=== PATIENT | male | born 1960 | race Caucasian/White ===

== ENCOUNTER 2020-03-20 09:34 | Inpatient (IN) | payer OTHER ==
[2020-03-20] MEDS ORDERED: ACETAMINOPHEN 1000 MG/100 ML VIAL (NON FORMULARY) IVPB ONE (10:10)
[2020-03-20] MEDS ORDERED: SODIUM CHLORIDE 1,000 ML IV SCH ×2 (10:15→13:40)
[2020-03-20] MEDS ORDERED: methylPREDNISolone NA SUCC 125 MG/2 ML VIAL IVPUSH ONE (10:45)
[2020-03-20 11:17] LABS: VENOUS BASE EXCESS -0.9 mmol/L (-2-2); VENOUS O2 SATURATION 97.2 % (70-80); VENOUS PH 7.463 (7.310-7.410)
[2020-03-20 11:22] LABS: BASO % 0.1 % (0-2.0); LYMPH % 16.1 % (8-40); MCH 29.2 pg (25.7-33.7); MEAN CELL VOLUME 85.7 fl (80-96); MEAN PLT VOLUME 9.7 fl (7.5-11.1); MONO % 8.2 % (3.8-10.2); NEUT % 75.6 % (42.8-82.8); PLATELET COUNT 133 K/MM3 (134-434); RBC 5.13 M/mm3 (4.00-5.60); RDW 13.3 % (11.9-15.9)
[2020-03-20] MEDS ORDERED: methylPREDNISolone NA SUCC 125 MG/2 ML VIAL ONE (11:27)
[2020-03-20 11:34] LABS: INR 1.26 (0.83-1.09); PROTHROMBIN TIME (PATIENT) 15.4 SEC (9.7-13.0)
[2020-03-20 11:37] LABS: ACTIVATED PTT 34.2 SECONDS (25.2-36.5)
[2020-03-20 11:46] LABS: POTASSIUM 3.5 mmol/L (3.5-5.1)
[2020-03-20 11:47] LABS: CALCIUM 8.6 mg/dL (8.5-10.1)
[2020-03-20 11:48] LABS: ALBUMIN 3.4 g/dl (3.4-5.0); MAGNESIUM 2.4 mg/dL (1.8-2.4)
[2020-03-20 11:51] LABS: CREATININE 0.9 mg/dL (0.55-1.3)
[2020-03-20 11:53] LABS: BILIRUBIN,TOTAL 0.4 mg/dL (0.2-1); TOT PROT 7.1 g/dl (6.4-8.2)
[2020-03-20 11:57] LABS: N-TERMINAL BNP 63.4 pg/ml (5-125)
[2020-03-20] MEDS ORDERED: ALBUTEROL SO4 2.5/IPRATROPIUM 0.5 INH SOL 3 ML VIAL.NEB. NEB PRN ×2 (14:26→14:29)
[2020-03-20] MEDS ORDERED: ALBUTEROL SO4 HFA INHALER IH PRN (14:30)
[2020-03-20] MEDS ORDERED: DEXTROSE 5%-WATER - 50 ML IVPB ONE (15:16)
[2020-03-20] MEDS ORDERED: cefTRIAXone SODIUM 1 GM VIAL ONE (15:16)
[2020-03-20] MEDS: ZINC SULFATE 220 MG CAPSULE (FP) PO SCH (15:46)
[2020-03-20] MEDS: ASCORBIC ACID 500 MG TABLET (FP) PO SCH (15:46)
[2020-03-20] MEDS: CEFTRIAXONE 1 GM in DEXTROSE 5%-WATER - 50 ML IVPB SCH (15:46)
[2020-03-20] MEDS: AZITHROMYCIN IVPB 500 MG/250 ML BAG IVPB SCH (17:22)
[2020-03-20 18:50] VITALS: BMI 30.4
[2020-03-20 18:59] LABS: PH,URINE 5.5 (5.0-8.0); URINE APPEARANCE CLEAR; URINE BILIRUBIN NEGATIVE (NEGATIVE); URINE COLOR YELLOW; URINE GLUCOSE (UA) 2+ (NEGATIVE); URINE KETONE NEGATIVE (NEGATIVE); URINE LEUK ESTERASE NEGATIVE (NEGATIVE); URINE NITRITE NEGATIVE (NEGATIVE); URINE PROTEIN NEGATIVE (NEGATIVE); URINE UROBILINOGEN 0.2 mg/dL (0.2-1.0)
[2020-03-20] MEDS: ATORVASTATIN CA 20 MG TABLET (FP) PO SCH (21:13)
[2020-03-20] MEDS: DOCUSATE SODIUM 100 MG CAPSULE (FP) PO SCH ×2 (21:13→21:29)
[2020-03-20] MEDS ORDERED: ENOXAPARIN NA (PORCINE) 100 MG/1 ML DISP.SYRIN SQ SCH (22:00)
[2020-03-20] MEDS ORDERED: guaiFENesin 200 MG/10 ML 10 ML UNIT-DOSE CUPS PO ONE (22:23)
[2020-03-21 08:43] LABS: BASO % 0.2 % (0-2.0); HEMATOCRIT 40.2 % (35.4-49); HEMOGLOBIN 14.1 GM/dL (11.7-16.9); LYMPH % 8.8 % (8-40); MCH 30.5 pg (25.7-33.7); MEAN CELL VOLUME 87.1 fl (80-96); MEAN PLT VOLUME 9.7 fl (7.5-11.1); PLATELET COUNT 148 K/MM3 (134-434); RBC 4.61 M/mm3 (4.00-5.60); RDW 13.1 % (11.9-15.9); WHITE BLOOD COUNT 9.4 K/mm3 (4.0-10.0)
[2020-03-21 08:54] LABS: POTASSIUM 3.8 mmol/L (3.5-5.1)
[2020-03-21 08:56] LABS: CALCIUM 7.9 mg/dL (8.5-10.1)
[2020-03-21 08:57] LABS: ALBUMIN 2.8 g/dl (3.4-5.0); BLOOD UREA NITROGEN 15.9 mg/dL (7-18); MAGNESIUM 2.2 mg/dL (1.8-2.4)
[2020-03-21 08:59] LABS: CREATININE 0.8 mg/dL (0.55-1.3)
[2020-03-21 09:00] LABS: PHOSPHOROUS 3.5 mg/dL (2.5-4.9)
[2020-03-21 09:01] LABS: BILIRUBIN,TOTAL 0.4 mg/dL (0.2-1); TOT PROT 6.3 g/dl (6.4-8.2)
[2020-03-21] MEDS ORDERED: FLU VACCINE (FLULAVAL) PF 60 MCG/0.5 ML SYRINGE 2020-2021 IM ONE (10:00)
[2020-03-21] MEDS ORDERED: DEXAMETHASONE SOD PHOSPHATE 4 MG/1 ML VIAL IVPUSH SCH (10:00)
[2020-03-21] MEDS ORDERED: DEXTROSE 5%-WATER - 50 ML IVPB ONE (10:08)
[2020-03-21] MEDS ORDERED: cefTRIAXone SODIUM 1 GM VIAL ONE (10:08)
[2020-03-21] MEDS: ASCORBIC ACID 500 MG TABLET (FP) PO SCH (10:46)
[2020-03-21] MEDS: CEFTRIAXONE 1 GM in DEXTROSE 5%-WATER - 50 ML IVPB SCH (10:46)
[2020-03-21] MEDS: ZINC SULFATE 220 MG CAPSULE (FP) PO SCH (10:46)
[2020-03-21] MEDS: DOCUSATE SODIUM 100 MG CAPSULE (FP) PO SCH ×2 (10:46→21:54)
[2020-03-21] MEDS: ENOXAPARIN NA (PORCINE) 40 MG/0.4 ML DISP.SYRIN SQ SCH (10:47)
[2020-03-21] MEDS: DEXAMETHASONE 4 MG TABLET (FP) PO SCH (10:47)
[2020-03-21] MEDS: AZITHROMYCIN IVPB 500 MG/250 ML BAG IVPB SCH (11:45)
[2020-03-21] MEDS: ACETAMINOPHEN 325 MG TABLET (FP) PO PRN (11:46)
[2020-03-21] MEDS ORDERED: REMDESIVIR 200 MG in SODIUM CHLORIDE 210 ML IVPB ONE (15:00)
[2020-03-21] MEDS ORDERED: PT OWN MED DRAWER 7, Y5N ONE (15:49)
[2020-03-21] MEDS: ATORVASTATIN CA 20 MG TABLET (FP) PO SCH (21:54)
[2020-03-22] MEDS ORDERED: guaiFENesin/D-METHORPHAN HB 10 ML UNIT-DOSE CUPS PO ONE (03:12)
[2020-03-22 08:25] LABS: HEMATOCRIT 38.4 % (35.4-49); HEMOGLOBIN 13.1 GM/dL (11.7-16.9); MCH 29.1 pg (25.7-33.7); MEAN CELL VOLUME 85.6 fl (80-96); MEAN PLT VOLUME 8.7 fl (7.5-11.1); PLATELET COUNT 179 K/MM3 (134-434); RBC 4.49 M/mm3 (4.00-5.60); RDW 13.2 % (11.9-15.9)
[2020-03-22 08:40] LABS: POTASSIUM 3.9 mmol/L (3.5-5.1)
[2020-03-22 08:45] LABS: BLOOD UREA NITROGEN 19.7 mg/dL (7-18); CALCIUM 8.2 mg/dL (8.5-10.1)
[2020-03-22 08:48] LABS: CREATININE 0.8 mg/dL (0.55-1.3)
[2020-03-22] MEDS ORDERED: cefTRIAXone SODIUM 1 GM VIAL ONE (10:36)
[2020-03-22] MEDS ORDERED: DEXTROSE 5%-WATER - 50 ML IVPB ONE (10:37)
[2020-03-22] MEDS: ENOXAPARIN NA (PORCINE) 40 MG/0.4 ML DISP.SYRIN SQ SCH (10:42)
[2020-03-22] MEDS: DEXAMETHASONE 4 MG TABLET (FP) PO SCH (10:42)
[2020-03-22] MEDS: DOCUSATE SODIUM 100 MG CAPSULE (FP) PO SCH ×2 (10:42→21:07)
[2020-03-22] MEDS: ZINC SULFATE 220 MG CAPSULE (FP) PO SCH (10:42)
[2020-03-22] MEDS: ASCORBIC ACID 500 MG TABLET (FP) PO SCH (10:42)
[2020-03-22] MEDS: CEFTRIAXONE 1 GM in DEXTROSE 5%-WATER - 50 ML IVPB SCH (10:43)
[2020-03-22] MEDS: AZITHROMYCIN IVPB 500 MG/250 ML BAG IVPB SCH (10:43)
[2020-03-22] MEDS: REMDESIVIR 100 MG in SODIUM CHLORIDE 230 ML IVPB SCH (15:00)
[2020-03-22] MEDS: ALBUTEROL SO4 HFA INHALER IH SCH ×2 (15:02→21:07)
[2020-03-22] MEDS: ATORVASTATIN CA 20 MG TABLET (FP) PO SCH (21:06)
[2020-03-23] MEDS: ALBUTEROL SO4 HFA INHALER IH SCH ×3 (05:28→21:07)
[2020-03-23] MEDS ORDERED: PT OWN MED DRAWER 7, Y5N ONE ×2 (06:34→11:20)
[2020-03-23 08:02] LABS: HEMATOCRIT 41.1 % (35.4-49); HEMOGLOBIN 13.9 GM/dL (11.7-16.9); MCH 29.6 pg (25.7-33.7); MCHC 33.9 g/dl (32.0-35.9); MEAN CELL VOLUME 87.5 fl (80-96); MEAN PLT VOLUME 9.3 fl (7.5-11.1); PLATELET COUNT 206 K/MM3 (134-434); RDW 13.2 % (11.9-15.9); WHITE BLOOD COUNT 9.7 K/mm3 (4.0-10.0)
[2020-03-23 08:10] LABS: POTASSIUM 3.9 mmol/L (3.5-5.1)
[2020-03-23 08:24] LABS: ALBUMIN 2.8 g/dl (3.4-5.0); CALCIUM 8.5 mg/dL (8.5-10.1)
[2020-03-23 08:25] LABS: BLOOD UREA NITROGEN 22.4 mg/dL (7-18); MAGNESIUM 2.5 mg/dL (1.8-2.4)
[2020-03-23 08:27] LABS: CREATININE 0.6 mg/dL (0.55-1.3)
[2020-03-23 08:28] LABS: BILIRUBIN,TOTAL 0.5 mg/dL (0.2-1); PHOSPHOROUS 3.4 mg/dL (2.5-4.9); TOT PROT 6.3 g/dl (6.4-8.2)
[2020-03-23] MEDS ORDERED: DEXTROSE 5%-WATER - 50 ML IVPB ONE (11:21)
[2020-03-23] MEDS ORDERED: cefTRIAXone SODIUM 1 GM VIAL ONE (11:21)
[2020-03-23] MEDS: ZINC SULFATE 220 MG CAPSULE (FP) PO SCH (11:25)
[2020-03-23] MEDS: DOCUSATE SODIUM 100 MG CAPSULE (FP) PO SCH ×2 (11:25→21:07)
[2020-03-23] MEDS: ASCORBIC ACID 500 MG TABLET (FP) PO SCH (11:25)
[2020-03-23] MEDS: DEXAMETHASONE 4 MG TABLET (FP) PO SCH (11:25)
[2020-03-23] MEDS: ENOXAPARIN NA (PORCINE) 40 MG/0.4 ML DISP.SYRIN SQ SCH (11:26)
[2020-03-23] MEDS: CEFTRIAXONE 1 GM in DEXTROSE 5%-WATER - 50 ML IVPB SCH (11:26)
[2020-03-23] MEDS: REMDESIVIR 100 MG in SODIUM CHLORIDE 230 ML IVPB SCH (16:10)
[2020-03-23] MEDS: ACETAMINOPHEN 325 MG TABLET (FP) PO PRN (18:43)
[2020-03-23] MEDS: ATORVASTATIN CA 20 MG TABLET (FP) PO SCH (21:07)
[2020-03-24] MEDS: ALBUTEROL SO4 HFA INHALER IH SCH ×3 (05:52→21:54)
[2020-03-24 09:37] LABS: POTASSIUM 3.9 mmol/L (3.5-5.1)
[2020-03-24 09:49] LABS: BLOOD UREA NITROGEN 24.1 mg/dL (7-18); CALCIUM 8.3 mg/dL (8.5-10.1)
[2020-03-24 09:52] LABS: CREATININE 0.6 mg/dL (0.55-1.3)
[2020-03-24] MEDS ORDERED: cefTRIAXone SODIUM 1 GM VIAL ONE (10:44)
[2020-03-24] MEDS ORDERED: DEXTROSE 5%-WATER - 50 ML IVPB ONE (10:45)
[2020-03-24] MEDS: CEFTRIAXONE 1 GM in DEXTROSE 5%-WATER - 50 ML IVPB SCH (10:53)
[2020-03-24] MEDS: DOCUSATE SODIUM 100 MG CAPSULE (FP) PO SCH ×2 (10:54→21:54)
[2020-03-24] MEDS: ENOXAPARIN NA (PORCINE) 40 MG/0.4 ML DISP.SYRIN SQ SCH (10:54)
[2020-03-24] MEDS: DEXAMETHASONE 4 MG TABLET (FP) PO SCH (10:54)
[2020-03-24] MEDS: ASCORBIC ACID 500 MG TABLET (FP) PO SCH (10:54)
[2020-03-24] MEDS: ZINC SULFATE 220 MG CAPSULE (FP) PO SCH (10:54)
[2020-03-24] MEDS: REMDESIVIR 100 MG in SODIUM CHLORIDE 230 ML IVPB SCH (15:37)
[2020-03-24] MEDS: ATORVASTATIN CA 20 MG TABLET (FP) PO SCH (21:54)
[2020-03-24] MEDS: MELATONIN 5 MG TABLETS PO PRN (23:22)
[2020-03-25] MEDS: ALBUTEROL SO4 HFA INHALER IH SCH ×3 (06:14→22:10)
[2020-03-25 09:32] LABS: BASO % 0.1 % (0-2.0); EOS % 0.1 % (0-4.5); HEMATOCRIT 44.9 % (35.4-49); LYMPH % 11.7 % (8-40); MCH 29.1 pg (25.7-33.7); MCHC 33.5 g/dl (32.0-35.9); MEAN CELL VOLUME 86.9 fl (80-96); MEAN PLT VOLUME 8.7 fl (7.5-11.1); MONO % 6.2 % (3.8-10.2); NEUT % 81.9 % (42.8-82.8); PLATELET COUNT 295 K/MM3 (134-434); RBC 5.16 M/mm3 (4.00-5.60); RDW 12.8 % (11.9-15.9); WHITE BLOOD COUNT 13.1 K/mm3 (4.0-10.0)
[2020-03-25 09:46] LABS: POTASSIUM 3.8 mmol/L (3.5-5.1)
[2020-03-25] MEDS: DEXAMETHASONE 4 MG TABLET (FP) PO SCH (09:53)
[2020-03-25] MEDS: ASCORBIC ACID 500 MG TABLET (FP) PO SCH (09:53)
[2020-03-25] MEDS: DOCUSATE SODIUM 100 MG CAPSULE (FP) PO SCH ×2 (09:53→22:10)
[2020-03-25] MEDS: ENOXAPARIN NA (PORCINE) 40 MG/0.4 ML DISP.SYRIN SQ SCH (09:53)
[2020-03-25] MEDS: ZINC SULFATE 220 MG CAPSULE (FP) PO SCH (09:53)
[2020-03-25 09:59] LABS: CALCIUM 8.3 mg/dL (8.5-10.1)
[2020-03-25 10:00] LABS: ALBUMIN 2.8 g/dl (3.4-5.0); BLOOD UREA NITROGEN 21.7 mg/dL (7-18)
[2020-03-25 10:03] LABS: CREATININE 0.7 mg/dL (0.55-1.3)
[2020-03-25 10:04] LABS: BILIRUBIN,TOTAL 0.7 mg/dL (0.2-1); TOT PROT 6.6 g/dl (6.4-8.2)
[2020-03-25 10:32] LABS: ERYTHROCYTE SEDIMENTATION RATE 81 mm/hr (0-20)
[2020-03-25 11:22] LABS: ANISOCYTOSIS 1+; MACROCYTOSIS 0; PLATELET ESTIMATE NORMAL
[2020-03-25] MEDS: REMDESIVIR 100 MG in SODIUM CHLORIDE 230 ML IVPB SCH (15:43)
[2020-03-25] MEDS: ATORVASTATIN CA 20 MG TABLET (FP) PO SCH (22:10)
[2020-03-26] MEDS: MELATONIN 5 MG TABLETS PO PRN (00:35)
[2020-03-26] MEDS ORDERED: SODIUM CHLORIDE 0.9% 500 ML INFUS.BAG IV ONE (06:34)
[2020-03-26] MEDS: ALBUTEROL SO4 HFA INHALER IH SCH ×3 (06:45→22:57)
[2020-03-26 08:55] LABS: BASO % 0.2 % (0-2.0); EOS % 0.6 % (0-4.5); HEMOGLOBIN 14.3 GM/dL (11.7-16.9); LYMPH % 9.2 % (8-40); MCH 29.3 pg (25.7-33.7); MCHC 34.1 g/dl (32.0-35.9); MEAN CELL VOLUME 85.9 fl (80-96); MEAN PLT VOLUME 8.5 fl (7.5-11.1); MONO % 6.5 % (3.8-10.2); NEUT % 83.5 % (42.8-82.8); PLATELET COUNT 304 K/MM3 (134-434); RBC 4.88 M/mm3 (4.00-5.60); RDW 12.6 % (11.9-15.9); WHITE BLOOD COUNT 14.5 K/mm3 (4.0-10.0)
[2020-03-26 09:09] LABS: POTASSIUM 3.9 mmol/L (3.5-5.1)
[2020-03-26 09:11] LABS: CALCIUM 8.3 mg/dL (8.5-10.1)
[2020-03-26 09:12] LABS: ALBUMIN 2.6 g/dl (3.4-5.0); BLOOD UREA NITROGEN 21.7 mg/dL (7-18)
[2020-03-26 09:15] LABS: CREATININE 0.6 mg/dL (0.55-1.3)
[2020-03-26 09:16] LABS: BILIRUBIN,TOTAL 1.3 mg/dL (0.2-1)
[2020-03-26 10:56] LABS: ANISOCYTOSIS 2+; MACROCYTOSIS 0; PLATELET ESTIMATE NORMAL
[2020-03-26] MEDS: DEXAMETHASONE 4 MG TABLET (FP) PO SCH (11:21)
[2020-03-26] MEDS: ASCORBIC ACID 500 MG TABLET (FP) PO SCH ×3 (11:22→22:57)
[2020-03-26] MEDS: FAMOTIDINE 20 MG TABLET PO SCH (11:22)
[2020-03-26] MEDS: ZINC SULFATE 220 MG CAPSULE (FP) PO SCH (11:22)
[2020-03-26] MEDS: DOCUSATE SODIUM 100 MG CAPSULE (FP) PO SCH ×2 (11:22→22:57)
[2020-03-26] MEDS: ENOXAPARIN NA (PORCINE) 40 MG/0.4 ML DISP.SYRIN SQ SCH (11:24)
[2020-03-26] MEDS ORDERED: ENOXAPARIN NA (PORCINE) 60 MG/0.6 ML DISP.SYRIN SQ SCH (12:45)
[2020-03-26] MEDS ORDERED: ENOXAPARIN NA (PORCINE) 60 MG/0.6 ML DISP.SYRIN SQ ONE (12:54)
[2020-03-26] MEDS ORDERED: MELATONIN 5 MG TABLETS PO ONE (20:59)
[2020-03-26] MEDS ORDERED: ATORVASTATIN CA 40 MG TABLET (FP) PO SCH (22:00)
[2020-03-26] MEDS ORDERED: ENOXAPARIN NA (PORCINE) 100 MG/1 ML DISP.SYRIN SQ SCH (22:00)
[2020-03-26] MEDS: ENOXAPARIN NA (PORCINE) 100 MG/1 ML DISP.SYRIN SQ SCH (22:57)
[2020-03-27] MEDS ORDERED: LACTATED RINGERS SOLUTION 1000 ML INFUS.BAG IV ONE (02:00)
[2020-03-27] MEDS: ALBUTEROL SO4 HFA INHALER IH SCH ×3 (06:14→21:12)
[2020-03-27 07:53] LABS: BASO % 0.2 % (0-2.0); EOS % 1.2 % (0-4.5); HEMATOCRIT 40.8 % (35.4-49); HEMOGLOBIN 13.8 GM/dL (11.7-16.9); LYMPH % 8.8 % (8-40); MCH 28.9 pg (25.7-33.7); MCHC 33.9 g/dl (32.0-35.9); MEAN CELL VOLUME 85.3 fl (80-96); MEAN PLT VOLUME 8.2 fl (7.5-11.1); MONO % 7.4 % (3.8-10.2); NEUT % 82.4 % (42.8-82.8); PLATELET COUNT 353 K/MM3 (134-434); RBC 4.78 M/mm3 (4.00-5.60); RDW 12.8 % (11.9-15.9); WHITE BLOOD COUNT 15.2 K/mm3 (4.0-10.0)
[2020-03-27 08:11] LABS: POTASSIUM 3.8 mmol/L (3.5-5.1)
[2020-03-27 08:31] LABS: CALCIUM 8.4 mg/dL (8.5-10.1)
[2020-03-27 08:32] LABS: ALBUMIN 2.6 g/dl (3.4-5.0); BLOOD UREA NITROGEN 20.2 mg/dL (7-18)
[2020-03-27 08:35] LABS: CREATININE 0.6 mg/dL (0.55-1.3)
[2020-03-27 08:38] LABS: BILIRUBIN,TOTAL 1.8 mg/dL (0.2-1); TOT PROT 5.9 g/dl (6.4-8.2)
[2020-03-27] MEDS: ZINC SULFATE 220 MG CAPSULE (FP) PO SCH (10:40)
[2020-03-27] MEDS: ASCORBIC ACID 500 MG TABLET (FP) PO SCH (10:41)
[2020-03-27] MEDS: FAMOTIDINE 20 MG TABLET PO SCH (10:41)
[2020-03-27] MEDS: DEXAMETHASONE 4 MG TABLET (FP) PO SCH (10:41)
[2020-03-27] MEDS: DOCUSATE SODIUM 100 MG CAPSULE (FP) PO SCH (10:41)
[2020-03-27] MEDS: ENOXAPARIN NA (PORCINE) 100 MG/1 ML DISP.SYRIN SQ SCH (10:51)
[2020-03-27 11:18] LABS: ANISOCYTOSIS 1+; MACROCYTOSIS 0; PLATELET ESTIMATE NORMAL; TOXIC GRANULATION 2+
[2020-03-27 13:13] LABS: BILIRUBIN,DIRECT 0.3 mg/dL (0.0-0.2)
[2020-03-27] MEDS ORDERED: ACETAMINOPHEN 325 MG TABLET (FP) PO PRN (17:54)
[2020-03-27] MEDS ORDERED: ENOXAPARIN NA (PORCINE) 100 MG/1 ML DISP.SYRIN SQ SCH (22:00)
[2020-03-27] MEDS ORDERED: DOCUSATE SODIUM 100 MG CAPSULE (FP) PO SCH (22:00)
[2020-03-27] MEDS ORDERED: ASCORBIC ACID 500 MG TABLET (FP) PO SCH (22:00)
[2020-03-27] MEDS ORDERED: ATORVASTATIN CA 40 MG TABLET (FP) PO SCH (22:00)
[2020-03-28] MEDS: ALBUTEROL SO4 HFA INHALER IH SCH ×3 (06:50→22:18)
[2020-03-28] MEDS ORDERED: ACETAMINOPHEN 325 MG TABLET (FP) PO PRN (07:46)
[2020-03-28 08:35] LABS: HEMATOCRIT 42.1 % (35.4-49); HEMOGLOBIN 14.6 GM/dL (11.7-16.9); MCHC 34.6 g/dl (32.0-35.9); MEAN CELL VOLUME 86.6 fl (80-96); MEAN PLT VOLUME 8.9 fl (7.5-11.1); PLATELET COUNT 338 K/MM3 (134-434); RBC 4.86 M/mm3 (4.00-5.60); RDW 12.8 % (11.9-15.9); WHITE BLOOD COUNT 15.7 K/mm3 (4.0-10.0)
[2020-03-28 08:53] LABS: POTASSIUM 4.1 mmol/L (3.5-5.1)
[2020-03-28 09:05] LABS: ALBUMIN 2.6 g/dl (3.4-5.0)
[2020-03-28 09:06] LABS: BLOOD UREA NITROGEN 20.1 mg/dL (7-18); CALCIUM 8.2 mg/dL (8.5-10.1); MAGNESIUM 2.5 mg/dL (1.8-2.4)
[2020-03-28 09:08] LABS: BILIRUBIN,TOTAL 0.8 mg/dL (0.2-1); CREATININE 0.6 mg/dL (0.55-1.3)
[2020-03-28 09:09] LABS: PHOSPHOROUS 3.9 mg/dL (2.5-4.9)
[2020-03-28] MEDS: ASCORBIC ACID 500 MG TABLET (FP) PO SCH ×2 (09:55→22:16)
[2020-03-28] MEDS: ZINC SULFATE 220 MG CAPSULE (FP) PO SCH (09:55)
[2020-03-28] MEDS: DEXAMETHASONE 4 MG TABLET (FP) PO SCH (09:55)
[2020-03-28] MEDS: FAMOTIDINE 20 MG TABLET PO SCH (09:55)
[2020-03-28] MEDS: DOCUSATE SODIUM 100 MG CAPSULE (FP) PO SCH ×2 (09:55→22:16)
[2020-03-28] MEDS: ENOXAPARIN NA (PORCINE) 100 MG/1 ML DISP.SYRIN SQ SCH ×2 (09:56→22:17)
[2020-03-28] MEDS ORDERED: ZINC SULFATE 220 MG CAPSULE (FP) PO SCH (10:00)
[2020-03-28] MEDS ORDERED: DEXAMETHASONE 4 MG TABLET (FP) PO SCH (10:00)
[2020-03-28] MEDS ORDERED: FAMOTIDINE 20 MG TABLET PO SCH (10:00)
[2020-03-28] MEDS ORDERED: ALBUTEROL SO4 HFA INHALER IH SCH (14:00)
[2020-03-28 15:44] LABS: ANISOCYTOSIS 0; MACROCYTOSIS 0; PLATELET ESTIMATE NORMAL
[2020-03-28] MEDS: MELATONIN 5 MG TABLETS PO PRN (22:16)
[2020-03-28] MEDS: ATORVASTATIN CA 40 MG TABLET (FP) PO SCH (22:16)
[2020-03-29] MEDS: ALBUTEROL SO4 HFA INHALER IH SCH ×2 (06:43→13:57)
[2020-03-29] MEDS: ENOXAPARIN NA (PORCINE) 100 MG/1 ML DISP.SYRIN SQ SCH ×2 (09:11→21:00)
[2020-03-29] MEDS: DEXAMETHASONE 4 MG TABLET (FP) PO SCH (09:11)
[2020-03-29] MEDS: DOCUSATE SODIUM 100 MG CAPSULE (FP) PO SCH ×2 (09:12→21:00)
[2020-03-29] MEDS: FAMOTIDINE 20 MG TABLET PO SCH (09:13)
[2020-03-29] MEDS: ZINC SULFATE 220 MG CAPSULE (FP) PO SCH (09:13)
[2020-03-29] MEDS: ASCORBIC ACID 500 MG TABLET (FP) PO SCH ×2 (09:13→21:00)
[2020-03-29] MEDS: ATORVASTATIN CA 40 MG TABLET (FP) PO SCH (21:00)
[2020-03-29] MEDS: MELATONIN 5 MG TABLETS PO PRN (21:00)
[2020-03-29] MEDS ORDERED: MELATONIN 5 MG TABLETS PO ONE (23:49)
[2020-03-30] MEDS ORDERED: INSULIN (NOVOLOG) ASPART 100 UNITS/ML 10ML VIAL ONE (07:30)
[2020-03-30] MEDS ORDERED: INSULIN (LEVEMIR) 100 UNITS/ML UNITS SQ ONE (07:30)
[2020-03-30] MEDS ORDERED: INSULIN (NOVOLOG MIX 70/30) 100 UNITS/ML MDV SQ ONE (07:30)
[2020-03-30 07:59] LABS: POTASSIUM 4.4 mmol/L (3.5-5.1)
[2020-03-30 08:05] LABS: ALBUMIN 2.5 g/dl (3.4-5.0); CALCIUM 8.5 mg/dL (8.5-10.1)
[2020-03-30 08:06] LABS: BLOOD UREA NITROGEN 17.2 mg/dL (7-18); MAGNESIUM 2.3 mg/dL (1.8-2.4)
[2020-03-30 08:07] LABS: PHOSPHOROUS 3.9 mg/dL (2.5-4.9)
[2020-03-30 08:08] LABS: BILIRUBIN,TOTAL 0.7 mg/dL (0.2-1); TOT PROT 6.7 g/dl (6.4-8.2)
[2020-03-30 08:09] LABS: CREATININE 0.7 mg/dL (0.55-1.3)
[2020-03-30 08:21] LABS: BASO % 0.3 % (0-2.0); EOS % 0.1 % (0-4.5); HEMATOCRIT 42.5 % (35.4-49); HEMOGLOBIN 14.3 GM/dL (11.7-16.9); LYMPH % 7.1 % (8-40); MCH 29.4 pg (25.7-33.7); MCHC 33.7 g/dl (32.0-35.9); MEAN CELL VOLUME 87.3 fl (80-96); MEAN PLT VOLUME 8.9 fl (7.5-11.1); MONO % 6.9 % (3.8-10.2); NEUT % 85.6 % (42.8-82.8); PLATELET COUNT 340 K/MM3 (134-434); RBC 4.87 M/mm3 (4.00-5.60); RDW 13.2 % (11.9-15.9)
[2020-03-30] MEDS: ENOXAPARIN NA (PORCINE) 100 MG/1 ML DISP.SYRIN SQ SCH ×2 (09:53→21:28)
[2020-03-30] MEDS: FAMOTIDINE 20 MG TABLET PO SCH (09:53)
[2020-03-30] MEDS: DOCUSATE SODIUM 100 MG CAPSULE (FP) PO SCH ×2 (09:53→21:30)
[2020-03-30] MEDS: ASCORBIC ACID 500 MG TABLET (FP) PO SCH ×2 (09:53→21:30)
[2020-03-30] MEDS: ZINC SULFATE 220 MG CAPSULE (FP) PO SCH (09:54)
[2020-03-30] MEDS: DEXAMETHASONE 4 MG TABLET (FP) PO SCH (09:54)
[2020-03-30 10:02] LABS: ANISOCYTOSIS 0; MACROCYTOSIS 0
[2020-03-30] MEDS: ALBUTEROL SO4 HFA INHALER IH SCH ×2 (13:19→21:30)
[2020-03-30] MEDS: ALPRAZolam 0.25 MG TABLET PO PRN (21:28)
[2020-03-30] MEDS: MELATONIN 5 MG TABLETS PO PRN (21:29)
[2020-03-30] MEDS: ATORVASTATIN CA 40 MG TABLET (FP) PO SCH (21:30)
[2020-03-31 08:40] LABS: BASO % 0.2 % (0-2.0); EOS % 0.1 % (0-4.5); HEMATOCRIT 42.3 % (35.4-49); HEMOGLOBIN 14.1 GM/dL (11.7-16.9); MCH 28.9 pg (25.7-33.7); MCHC 33.3 g/dl (32.0-35.9); MEAN CELL VOLUME 86.8 fl (80-96); MEAN PLT VOLUME 8.7 fl (7.5-11.1); MONO % 7.6 % (3.8-10.2); NEUT % 85.1 % (42.8-82.8); PLATELET COUNT 308 K/MM3 (134-434); RBC 4.87 M/mm3 (4.00-5.60); RDW 13.2 % (11.9-15.9); WHITE BLOOD COUNT 18.8 K/mm3 (4.0-10.0)
[2020-03-31 08:56] LABS: POTASSIUM 4.2 mmol/L (3.5-5.1)
[2020-03-31 09:07] LABS: ALBUMIN 2.4 g/dl (3.4-5.0); BLOOD UREA NITROGEN 21.2 mg/dL (7-18); CALCIUM 8.8 mg/dL (8.5-10.1); MAGNESIUM 2.4 mg/dL (1.8-2.4)
[2020-03-31 09:11] LABS: CREATININE 0.6 mg/dL (0.55-1.3); PHOSPHOROUS 3.9 mg/dL (2.5-4.9)
[2020-03-31 09:12] LABS: BILIRUBIN,TOTAL 0.7 mg/dL (0.2-1); TOT PROT 6.4 g/dl (6.4-8.2)
[2020-03-31] MEDS: ASCORBIC ACID 500 MG TABLET (FP) PO SCH ×2 (09:40→21:32)
[2020-03-31] MEDS: DEXAMETHASONE 4 MG TABLET (FP) PO SCH (09:40)
[2020-03-31] MEDS: DOCUSATE SODIUM 100 MG CAPSULE (FP) PO SCH ×2 (09:40→21:32)
[2020-03-31] MEDS: ZINC SULFATE 220 MG CAPSULE (FP) PO SCH (09:40)
[2020-03-31] MEDS: ENOXAPARIN NA (PORCINE) 100 MG/1 ML DISP.SYRIN SQ SCH ×2 (09:40→21:32)
[2020-03-31] MEDS: FAMOTIDINE 20 MG TABLET PO SCH (09:57)
[2020-03-31] MEDS: ALBUTEROL SO4 HFA INHALER IH SCH (13:57)
[2020-03-31] MEDS: MELATONIN 5 MG TABLETS PO PRN (21:32)
[2020-03-31] MEDS: ATORVASTATIN CA 40 MG TABLET (FP) PO SCH (21:32)
[2020-03-31] MEDS: ALPRAZolam 0.25 MG TABLET PO PRN (21:49)
[2020-04-01 07:43] LABS: POTASSIUM 3.8 mmol/L (3.5-5.1)
[2020-04-01 07:45] LABS: CALCIUM 8.5 mg/dL (8.5-10.1)
[2020-04-01 07:46] LABS: ALBUMIN 2.3 g/dl (3.4-5.0); BLOOD UREA NITROGEN 22.7 mg/dL (7-18); MAGNESIUM 2.2 mg/dL (1.8-2.4)
[2020-04-01 07:49] LABS: CREATININE 0.6 mg/dL (0.55-1.3); PHOSPHOROUS 4.4 mg/dL (2.5-4.9)
[2020-04-01 07:50] LABS: BILIRUBIN,TOTAL 0.5 mg/dL (0.2-1)
[2020-04-01 07:51] LABS: TOT PROT 6.4 g/dl (6.4-8.2)
[2020-04-01 08:13] LABS: BASO % 0.2 % (0-2.0); EOS % 0.1 % (0-4.5); HEMATOCRIT 41.3 % (35.4-49); HEMOGLOBIN 14.2 GM/dL (11.7-16.9); LYMPH % 7.1 % (8-40); MCH 30.1 pg (25.7-33.7); MCHC 34.4 g/dl (32.0-35.9); MEAN CELL VOLUME 87.4 fl (80-96); MEAN PLT VOLUME 9.1 fl (7.5-11.1); MONO % 7.4 % (3.8-10.2); NEUT % 85.2 % (42.8-82.8); PLATELET COUNT 303 K/MM3 (134-434); RBC 4.73 M/mm3 (4.00-5.60); RDW 13.1 % (11.9-15.9); WHITE BLOOD COUNT 19.7 K/mm3 (4.0-10.0)
[2020-04-01 09:08] LABS: ANISOCYTOSIS 0; HELMET CELLS 0; HOWELL-JOLLY BODIES 0; MACROCYTOSIS 0; OVALOCYTE 0; PLATELET ESTIMATE NORMAL; ROULEAU 0; SICKELED CELLS 0; TARGET CELLS 0; TEAR DROP CELLS 0; TOXIC GRANULATION 0
[2020-04-01] MEDS: DEXAMETHASONE 4 MG TABLET (FP) PO SCH (10:10)
[2020-04-01] MEDS: DOCUSATE SODIUM 100 MG CAPSULE (FP) PO SCH ×2 (10:10→21:06)
[2020-04-01] MEDS: ENOXAPARIN NA (PORCINE) 100 MG/1 ML DISP.SYRIN SQ SCH ×2 (10:11→21:06)
[2020-04-01] MEDS: FAMOTIDINE 20 MG TABLET PO SCH (10:11)
[2020-04-01] MEDS: ASCORBIC ACID 500 MG TABLET (FP) PO SCH ×2 (10:11→21:06)
[2020-04-01] MEDS: ZINC SULFATE 220 MG CAPSULE (FP) PO SCH (10:11)
[2020-04-01] MEDS: ALBUTEROL SO4 HFA INHALER IH SCH ×2 (14:39→22:00)
[2020-04-01] MEDS: ALPRAZolam 0.25 MG TABLET PO PRN (21:06)
[2020-04-01] MEDS: MELATONIN 5 MG TABLETS PO PRN (21:06)
[2020-04-01] MEDS: ATORVASTATIN CA 40 MG TABLET (FP) PO SCH (21:06)
[2020-04-02] MEDS: ASCORBIC ACID 500 MG TABLET (FP) PO SCH ×2 (09:39→22:08)
[2020-04-02] MEDS: FAMOTIDINE 20 MG TABLET PO SCH (09:39)
[2020-04-02] MEDS: DOCUSATE SODIUM 100 MG CAPSULE (FP) PO SCH ×2 (09:39→22:07)
[2020-04-02] MEDS: ENOXAPARIN NA (PORCINE) 100 MG/1 ML DISP.SYRIN SQ SCH ×2 (09:39→22:08)
[2020-04-02] MEDS: DEXAMETHASONE 4 MG TABLET (FP) PO SCH (09:40)
[2020-04-02] MEDS: ZINC SULFATE 220 MG CAPSULE (FP) PO SCH (09:40)
[2020-04-02] MEDS: ALBUTEROL SO4 HFA INHALER IH SCH ×2 (13:54→22:07)
[2020-04-02] MEDS ORDERED: ALPRAZolam 0.25 MG TABLET PO ONE (21:05)
[2020-04-02] MEDS: ATORVASTATIN CA 40 MG TABLET (FP) PO SCH (22:07)
[2020-04-02] MEDS: MELATONIN 5 MG TABLETS PO PRN (22:09)
[2020-04-03] MEDS: ENOXAPARIN NA (PORCINE) 100 MG/1 ML DISP.SYRIN SQ SCH ×2 (09:11→21:26)
[2020-04-03] MEDS: DOCUSATE SODIUM 100 MG CAPSULE (FP) PO SCH ×2 (09:12→21:26)
[2020-04-03] MEDS: ASCORBIC ACID 500 MG TABLET (FP) PO SCH ×2 (09:13→21:26)
[2020-04-03] MEDS: FAMOTIDINE 20 MG TABLET PO SCH (09:13)
[2020-04-03] MEDS: DEXAMETHASONE 4 MG TABLET (FP) PO SCH (09:13)
[2020-04-03] MEDS: ZINC SULFATE 220 MG CAPSULE (FP) PO SCH (09:13)
[2020-04-03] MEDS: MELATONIN 5 MG TABLETS PO PRN (21:26)
[2020-04-03] MEDS: ATORVASTATIN CA 40 MG TABLET (FP) PO SCH (21:26)
[2020-04-03] MEDS: ALBUTEROL SO4 HFA INHALER IH SCH (21:31)
[2020-04-04] MEDS ORDERED: PCA PUMP NR ONE (04:25)
[2020-04-04] MEDS: ALBUTEROL SO4 HFA INHALER IH SCH ×3 (05:59→22:10)
[2020-04-04 06:33] LABS: BASO % 0.5 % (0-2.0); EOS % 0.7 % (0-4.5); HEMATOCRIT 41.5 % (35.4-49); HEMOGLOBIN 13.9 GM/dL (11.7-16.9); LYMPH % 14.1 % (8-40); MCHC 33.5 g/dl (32.0-35.9); MEAN CELL VOLUME 86.5 fl (80-96); MEAN PLT VOLUME 8.5 fl (7.5-11.1); MONO % 8.9 % (3.8-10.2); NEUT % 75.8 % (42.8-82.8); PLATELET COUNT 260 K/MM3 (134-434); RDW 13.1 % (11.9-15.9); WHITE BLOOD COUNT 15.6 K/mm3 (4.0-10.0)
[2020-04-04 06:57] LABS: POTASSIUM 4.1 mmol/L (3.5-5.1)
[2020-04-04 06:59] LABS: BLOOD UREA NITROGEN 25.4 mg/dL (7-18); CALCIUM 8.9 mg/dL (8.5-10.1)
[2020-04-04 07:00] LABS: ALBUMIN 2.5 g/dl (3.4-5.0); MAGNESIUM 2.2 mg/dL (1.8-2.4)
[2020-04-04 07:02] LABS: CREATININE 0.7 mg/dL (0.55-1.3); PHOSPHOROUS 4.5 mg/dL (2.5-4.9)
[2020-04-04 07:04] LABS: BILIRUBIN,TOTAL 0.5 mg/dL (0.2-1); TOT PROT 6.7 g/dl (6.4-8.2)
[2020-04-04] MEDS: DEXAMETHASONE 4 MG TABLET (FP) PO SCH (09:37)
[2020-04-04] MEDS: ENOXAPARIN NA (PORCINE) 100 MG/1 ML DISP.SYRIN SQ SCH (09:37)
[2020-04-04] MEDS: ASCORBIC ACID 500 MG TABLET (FP) PO SCH ×2 (09:37→22:09)
[2020-04-04] MEDS: DOCUSATE SODIUM 100 MG CAPSULE (FP) PO SCH ×2 (09:38→22:09)
[2020-04-04] MEDS: ZINC SULFATE 220 MG CAPSULE (FP) PO SCH (09:38)
[2020-04-04] MEDS: FAMOTIDINE 20 MG TABLET PO SCH (09:38)
[2020-04-04 10:52] LABS: ANISOCYTOSIS 0; MACROCYTOSIS 0; PLATELET ESTIMATE NORMAL
[2020-04-04] MEDS: ATORVASTATIN CA 40 MG TABLET (FP) PO SCH (22:10)
[2020-04-04] MEDS: MELATONIN 5 MG TABLETS PO PRN (22:11)
[2020-04-05] MEDS: ALBUTEROL SO4 HFA INHALER IH SCH ×4 (06:00→22:56)
[2020-04-05 07:30] LABS: BASO % 0.4 % (0-2.0); EOS % 0.9 % (0-4.5); HEMATOCRIT 39.7 % (35.4-49); HEMOGLOBIN 13.3 GM/dL (11.7-16.9); LYMPH % 16.2 % (8-40); MCH 29.2 pg (25.7-33.7); MCHC 33.5 g/dl (32.0-35.9); MEAN CELL VOLUME 87.1 fl (80-96); MEAN PLT VOLUME 8.4 fl (7.5-11.1); MONO % 7.7 % (3.8-10.2); NEUT % 74.8 % (42.8-82.8); PLATELET COUNT 214 K/MM3 (134-434); RBC 4.56 M/mm3 (4.00-5.60); RDW 13.1 % (11.9-15.9); WHITE BLOOD COUNT 12.8 K/mm3 (4.0-10.0)
[2020-04-05 07:49] LABS: ALBUMIN 2.5 g/dl (3.4-5.0)
[2020-04-05 07:50] LABS: BLOOD UREA NITROGEN 22.8 mg/dL (7-18); CALCIUM 8.2 mg/dL (8.5-10.1)
[2020-04-05 07:52] LABS: MAGNESIUM 2.3 mg/dL (1.8-2.4)
[2020-04-05 07:55] LABS: CREATININE 0.7 mg/dL (0.55-1.3); PHOSPHOROUS 4.2 mg/dL (2.5-4.9)
[2020-04-05 07:56] LABS: BILIRUBIN,TOTAL 0.6 mg/dL (0.2-1); TOT PROT 6.2 g/dl (6.4-8.2)
[2020-04-05 10:27] LABS: ANISOCYTOSIS 0; MACROCYTOSIS 0; PLATELET ESTIMATE NORMAL
[2020-04-05] MEDS: DOCUSATE SODIUM 100 MG CAPSULE (FP) PO SCH ×2 (10:44→22:43)
[2020-04-05] MEDS: DEXAMETHASONE 4 MG TABLET (FP) PO SCH (10:44)
[2020-04-05] MEDS: FAMOTIDINE 20 MG TABLET PO SCH (10:44)
[2020-04-05] MEDS: ZINC SULFATE 220 MG CAPSULE (FP) PO SCH (10:44)
[2020-04-05] MEDS: ASCORBIC ACID 500 MG TABLET (FP) PO SCH ×2 (10:44→22:43)
[2020-04-05] MEDS: ATORVASTATIN CA 40 MG TABLET (FP) PO SCH (22:43)
[2020-04-05] MEDS: MELATONIN 5 MG TABLETS PO PRN (22:43)
[2020-04-06 08:15] LABS: BASO % 0.4 % (0-2.0); EOS % 0.9 % (0-4.5); HEMATOCRIT 41.8 % (35.4-49); HEMOGLOBIN 13.9 GM/dL (11.7-16.9); LYMPH % 19.5 % (8-40); MCHC 33.2 g/dl (32.0-35.9); MEAN CELL VOLUME 87.4 fl (80-96); MEAN PLT VOLUME 8.8 fl (7.5-11.1); MONO % 7.3 % (3.8-10.2); NEUT % 71.9 % (42.8-82.8); PLATELET COUNT 222 K/MM3 (134-434); RBC 4.78 M/mm3 (4.00-5.60); RDW 12.9 % (11.9-15.9); WHITE BLOOD COUNT 13.2 K/mm3 (4.0-10.0)
[2020-04-06 08:37] LABS: ALBUMIN 2.7 g/dl (3.4-5.0); CALCIUM 8.6 mg/dL (8.5-10.1); MAGNESIUM 2.4 mg/dL (1.8-2.4)
[2020-04-06 08:40] LABS: CREATININE 0.7 mg/dL (0.55-1.3); PHOSPHOROUS 3.9 mg/dL (2.5-4.9)
[2020-04-06 08:41] LABS: BILIRUBIN,TOTAL 0.5 mg/dL (0.2-1); TOT PROT 6.6 g/dl (6.4-8.2)
[2020-04-06 09:53] LABS: ANISOCYTOSIS 0; MACROCYTOSIS 0; PLATELET ESTIMATE NORMAL
[2020-04-06] MEDS: FAMOTIDINE 20 MG TABLET PO SCH (10:42)
[2020-04-06] MEDS: DOCUSATE SODIUM 100 MG CAPSULE (FP) PO SCH ×2 (10:42→21:47)
[2020-04-06] MEDS: ZINC SULFATE 220 MG CAPSULE (FP) PO SCH (10:42)
[2020-04-06] MEDS: ASCORBIC ACID 500 MG TABLET (FP) PO SCH ×2 (10:42→21:47)
[2020-04-06] MEDS: DEXAMETHASONE 4 MG TABLET (FP) PO SCH (10:42)
[2020-04-06] MEDS: APIXABAN 5 MG TABLET PO SCH ×2 (10:51→21:47)
[2020-04-06] MEDS: ALBUTEROL SO4 HFA INHALER IH SCH (21:46)
[2020-04-06] MEDS: ATORVASTATIN CA 40 MG TABLET (FP) PO SCH (21:47)
[2020-04-07 06:22] VITALS: TEMP 98.2
[2020-04-07 08:10] LABS: BASO % 0.4 % (0-2.0); HEMATOCRIT 39.8 % (35.4-49); LYMPH % 20.3 % (8-40); MCH 28.5 pg (25.7-33.7); MCHC 32.5 g/dl (32.0-35.9); MEAN CELL VOLUME 87.4 fl (80-96); MEAN PLT VOLUME 8.4 fl (7.5-11.1); MONO % 8.3 % (3.8-10.2); PLATELET COUNT 208 K/MM3 (134-434); RBC 4.55 M/mm3 (4.00-5.60); WHITE BLOOD COUNT 12.7 K/mm3 (4.0-10.0)
[2020-04-07 08:19] LABS: CHLORIDE 101 mmol/L (98-107); POTASSIUM 3.9 mmol/L (3.5-5.1); SODIUM 137 mmol/L (136-145)
[2020-04-07 08:24] LABS: ALBUMIN 2.6 g/dl (3.4-5.0); ANION GAP 9 MMOL/L (8-16); CALCIUM 8.5 mg/dL (8.5-10.1); CO2 28 mmol/L (21-32); GLUCOSE,RANDOM 98 mg/dL (74-106)
[2020-04-07 08:25] LABS: BLOOD UREA NITROGEN 23.9 mg/dL (7-18); MAGNESIUM 2.4 mg/dL (1.8-2.4)
[2020-04-07 08:27] LABS: PHOSPHOROUS 3.9 mg/dL (2.5-4.9); SGOT/AST 37 U/L (15-37); SGPT/ALT 203 U/L (13-61)
[2020-04-07 08:28] LABS: CREATININE 0.6 mg/dL (0.55-1.3); LDH 203 U/L (87-246)
[2020-04-07 08:29] LABS: BILIRUBIN,TOTAL 0.3 mg/dL (0.2-1); TOT PROT 6.2 g/dl (6.4-8.2)
[2020-04-07 08:30] LABS: ALK PHOS 69 U/L (45-117)
[2020-04-07 08:47] VITALS: BP 108/59
[2020-04-07] MEDS: ASCORBIC ACID 500 MG TABLET (FP) PO SCH (09:15)
[2020-04-07] MEDS: FAMOTIDINE 20 MG TABLET PO SCH (09:16)
[2020-04-07] MEDS: ZINC SULFATE 220 MG CAPSULE (FP) PO SCH (09:16)
[2020-04-07] MEDS: DOCUSATE SODIUM 100 MG CAPSULE (FP) PO SCH (09:16)
[2020-04-07] MEDS: APIXABAN 5 MG TABLET PO SCH (09:16)
[2020-04-07] MEDS: DEXAMETHASONE 4 MG TABLET (FP) PO SCH (09:16)
[2020-04-07 11:24] LABS: ANISOCYTOSIS 0; MACROCYTOSIS 0; PLATELET ESTIMATE NORMAL
[2020-04-07] MEDS: ALBUTEROL SO4 HFA INHALER IH SCH (13:27)
[2020-04-07 18:41] VITALS: PULSE 73
== END 2020-04-07 20:14 | disposition home or self-care (01) | DRG 177 ==
LOC: JER 09:34 → JERBED 11:21 → J5S 13:55 → J4W 03-28 02:06
PROVIDERS: ATTEND Internal Medicine
PROC: XW033E5 Introduction of Remdesivir Anti-infective into Peripheral Vein, Percutaneous Approach, New Technology Group 5 (ICD-10-PCS; principal; 2020-03-21)
PROC: XW13325 Transfusion of Convalescent Plasma (Nonautologous) into Peripheral Vein, Percutaneous Approach, New Technology Group 5 (ICD-10-PCS; 2020-03-21)
DX: U07.1 COVID-19 (principal); J96.01 Acute respiratory failure with hypoxia; J12.89 Other viral pneumonia; D68.59 Other primary thrombophilia; I24.8 Other forms of acute ischemic heart disease; E78.5 Hyperlipidemia, unspecified; E66.9 Obesity, unspecified; I95.9 Hypotension, unspecified; Z68.30 Body mass index [BMI] 30.0-30.9, adult; F41.9 Anxiety disorder, unspecified
CPT/HCPCS: 36415; 36430; 71045-TC-FY; 80048; 80053; 81003; 82248; 82728; 82803; 82962; 83605; 83615; 83735; 83880; 84100; 84484; 85025; 85027; 85379; 85610; 85651; 85730; 86140; 86850; 86900; 86901; 87040; 87086; 87804; 93005; 93010; 94660; 99285-25; C9803; J0131; P9017; U0003

== ENCOUNTER 2020-08-04 04:49 | Day surgery (SDC) | payer OTHER ==
[2020-08-01 16:57] VITALS: BMI 34.7
[2020-08-04] MEDS ORDERED: PROPOFOL 20 ML ONE (15:41)
[2020-08-04] MEDS ORDERED: MIDAZOLAM HCL 2 MG/2 ML SINGLE DOSE VIAL ONE (15:42)
[2020-08-04] MEDS ORDERED: ceFAZolin 2 GRAM PREMIX BAG IVPB ONE (15:46)
[2020-08-04] MEDS ORDERED: GENTAMICIN 80MG PREMIX BAG IVPB ONE (15:47)
[2020-08-04] MEDS ORDERED: ceFAZolin SODIUM 1 GM VIAL ONE ×2 (15:53→15:54)
[2020-08-04] MEDS ORDERED: GENTAMICIN SO4 80 MG/2 ML VIAL ONE ×2 (15:54)
[2020-08-04] MEDS ORDERED: oxyCODONE HCL 5 MG TABLET PO PRN ×2 (16:01)
[2020-08-04] MEDS ORDERED: ONDANSETRON 4 MG/2 ML VIAL IVPUSH PRN (16:01)
[2020-08-04] MEDS ORDERED: LACTATED RINGERS SOLUTION 1,000 ML IV SCH (16:15)
[2020-08-04 19:24] VITALS: PULSE 70
[2020-08-04 19:27] VITALS: BP 147/77; TEMP 97.9
== END 2020-08-04 19:40 | disposition home or self-care (01) ==
LOC: JASU-SURG 04:49
PROVIDERS: ATTEND Urology
PROC: 0V508ZZ Destruction of Prostate, Via Natural or Artificial Opening Endoscopic (ICD-10-PCS; principal; 2020-08-04 14:00)
DX: N40.1 Benign prostatic hyperplasia with lower urinary tract symptoms (principal); I10 Essential (primary) hypertension; E11.9 Type 2 diabetes mellitus without complications; R35.1 Nocturia
CPT/HCPCS: 87086; 88305-TC; 94760

== ENCOUNTER 2020-08-17 18:34 | Inpatient (IN) | payer OTHER ==
[2020-08-17] MEDS ORDERED: morphine CARPU-JECT 4 MG/1 ML DISP.SYRIN IVPUSH ONE (19:25)
[2020-08-17] MEDS ORDERED: morphine SULFATE 4 MG/ML VIAL ONE (19:26)
[2020-08-17] MEDS ORDERED: LIDOCAINE HCL 2% JELLY 10 ML CARTRIDGE UR ONE (19:38)
[2020-08-17 20:39] LABS: BASO % 0.4 % (0-2.0); EOS % 0.8 % (0-4.5); HEMATOCRIT 39.2 % (35.4-49); HEMOGLOBIN 13.5 GM/dL (11.7-16.9); LYMPH % 15.2 % (8-40); MCH 29.4 pg (25.7-33.7); MCHC 34.4 g/dl (32.0-35.9); MEAN CELL VOLUME 85.4 fl (80-96); MONO % 6.2 % (3.8-10.2); NEUT % 77.4 % (42.8-82.8); PLATELET COUNT 258 K/MM3 (134-434); RBC 4.59 M/mm3 (4.00-5.60); RDW 12.8 % (11.9-15.9); WHITE BLOOD COUNT 15.7 K/mm3 (4.0-10.0)
[2020-08-17] MEDS ORDERED: CEFTRIAXONE 1 GM in DEXTROSE 5%-WATER - 100 ML IVPB ONE (20:53)
[2020-08-17 20:59] LABS: CHLORIDE 100 mmol/L (98-107); SODIUM 130 mmol/L (136-145)
[2020-08-17 21:00] LABS: CALCIUM 9.4 mg/dL (8.5-10.1); CO2 23 mmol/L (21-32)
[2020-08-17 21:01] LABS: BLOOD UREA NITROGEN 19.4 mg/dL (7-18); GLUCOSE,RANDOM 155 mg/dL (74-106)
[2020-08-17 21:04] LABS: CREATININE 0.9 mg/dL (0.55-1.3)
[2020-08-17 21:07] LABS: ANION GAP 7 MMOL/L (8-16)
[2020-08-17] MEDS ORDERED: CEFTRIAXONE 1 GM/50 ML BAG ONE (21:33)
[2020-08-17] MEDS ORDERED: ATORVASTATIN CA 20 MG TABLET (FP) ONE (21:57)
[2020-08-17] MEDS ORDERED: TAMSULOSIN HCL 0.4 MG CAP ONE (21:57)
[2020-08-17] MEDS ORDERED: TAMSULOSIN HCL 0.4 MG CAP PO SCH (22:00)
[2020-08-17] MEDS: ATORVASTATIN CA 20 MG TABLET (FP) PO SCH (22:02)
[2020-08-17 23:44] LABS: BLOOD UREA NITROGEN 18.6 mg/dL (7-18); CALCIUM 9.3 mg/dL (8.5-10.1)
[2020-08-17 23:48] LABS: CREATININE 0.8 mg/dL (0.55-1.3)
[2020-08-18] MEDS ORDERED: ACETAMINOPHEN 325 MG TABLET (FP) ONE (02:39)
[2020-08-18] MEDS ORDERED: cefTRIAXone SODIUM 1 GM VIAL ONE (10:35)
[2020-08-18] MEDS ORDERED: DEXTROSE 5%-WATER - 50 ML IVPB ONE (10:35)
[2020-08-18] MEDS: CEFTRIAXONE 1 GM in DEXTROSE 5%-WATER - 50 ML IVPB SCH (10:37)
[2020-08-18] MEDS: TAMSULOSIN HCL 0.4 MG CAP PO SCH ×2 (10:37→21:06)
[2020-08-18 11:28] LABS: HEMATOCRIT 35.2 % (35.4-49); HEMOGLOBIN 12.1 GM/dL (11.7-16.9); MCH 29.7 pg (25.7-33.7); MCHC 34.5 g/dl (32.0-35.9); MEAN CELL VOLUME 85.9 fl (80-96); MEAN PLT VOLUME 8.4 fl (7.5-11.1); PLATELET COUNT 248 K/MM3 (134-434); RBC 4.09 M/mm3 (4.00-5.60); RDW 12.8 % (11.9-15.9); WHITE BLOOD COUNT 15.2 K/mm3 (4.0-10.0)
[2020-08-18 11:56] LABS: CALCIUM 9.3 mg/dL (8.5-10.1)
[2020-08-18 11:57] LABS: ALBUMIN 3.2 g/dl (3.4-5.0); BLOOD UREA NITROGEN 19.6 mg/dL (7-18); MAGNESIUM 2.4 mg/dL (1.8-2.4)
[2020-08-18 12:00] LABS: CREATININE 0.9 mg/dL (0.55-1.3)
[2020-08-18 12:01] LABS: BILIRUBIN,TOTAL 0.4 mg/dL (0.2-1)
[2020-08-18 12:02] LABS: TOT PROT 6.2 g/dl (6.4-8.2)
[2020-08-18 12:34] VITALS: BMI 28.0
[2020-08-18] MEDS: ACETAMINOPHEN 325 MG TABLET (FP) PO PRN ×2 (13:28→21:54)
[2020-08-18] MEDS ORDERED: INSULIN (NOVOLOG) ASPART 100 UNITS/ML 10ML VIAL ONE (20:51)
[2020-08-18] MEDS: ATORVASTATIN CA 20 MG TABLET (FP) PO SCH (21:06)
[2020-08-18] MEDS: INSULIN SLIDING SCALE (NOVOLOG) 1 VIAL SQ SCH (21:58)
[2020-08-19] MEDS: INSULIN SLIDING SCALE (NOVOLOG) 1 VIAL SQ SCH ×4 (06:32→21:51)
[2020-08-19] MEDS: INSULIN (LEVEMIR) 100 UNITS/ML UNITS SQ SCH ×2 (06:32→06:36)
[2020-08-19] MEDS ORDERED: DEXTROSE 5%-WATER - 50 ML IVPB ONE (09:15)
[2020-08-19] MEDS ORDERED: cefTRIAXone SODIUM 1 GM VIAL ONE (09:15)
[2020-08-19] MEDS: ACETAMINOPHEN 325 MG TABLET (FP) PO PRN (09:18)
[2020-08-19] MEDS: CEFTRIAXONE 1 GM in DEXTROSE 5%-WATER - 50 ML IVPB SCH (09:19)
[2020-08-19] MEDS: TAMSULOSIN HCL 0.4 MG CAP PO SCH ×2 (09:19→21:50)
[2020-08-19 09:46] LABS: BASO % 0.4 % (0-2.0); HEMATOCRIT 33.4 % (35.4-49); HEMOGLOBIN 11.4 GM/dL (11.7-16.9); LYMPH % 21.1 % (8-40); MCH 29.4 pg (25.7-33.7); MCHC 34.2 g/dl (32.0-35.9); MEAN CELL VOLUME 86.1 fl (80-96); MEAN PLT VOLUME 8.6 fl (7.5-11.1); MONO % 8.4 % (3.8-10.2); NEUT % 68.1 % (42.8-82.8); PLATELET COUNT 241 K/MM3 (134-434); RBC 3.89 M/mm3 (4.00-5.60); WHITE BLOOD COUNT 10.8 K/mm3 (4.0-10.0)
[2020-08-19 10:03] LABS: ALBUMIN 3.3 g/dl (3.4-5.0); BLOOD UREA NITROGEN 16.8 mg/dL (7-18); CALCIUM 8.6 mg/dL (8.5-10.1)
[2020-08-19 10:06] LABS: CREATININE 0.8 mg/dL (0.55-1.3)
[2020-08-19 10:07] LABS: BILIRUBIN,TOTAL 0.2 mg/dL (0.2-1)
[2020-08-19 10:08] LABS: TOT PROT 6.3 g/dl (6.4-8.2)
[2020-08-19] MEDS: POLYETHYLENE GLYCOL 3350 119 GM BTL PO SCH (14:39)
[2020-08-19] MEDS: DOCUSATE SODIUM 100 MG CAPSULE (FP) PO SCH (14:40)
[2020-08-19 21:26] LABS: PH,URINE 5.5 (5.0-8.0); URINE APPEARANCE CLOUDY; URINE BILIRUBIN NEGATIVE (NEGATIVE); URINE COLOR RED; URINE GLUCOSE (UA) NEGATIVE (NEGATIVE); URINE KETONE NEGATIVE (NEGATIVE); URINE LEUK ESTERASE 3+ (NEGATIVE); URINE NITRITE NEGATIVE (NEGATIVE); URINE PROTEIN 2+ (NEGATIVE); URINE UROBILINOGEN 0.2 mg/dL (0.2-1.0)
[2020-08-19] MEDS: ATORVASTATIN CA 20 MG TABLET (FP) PO SCH (21:51)
[2020-08-19] MEDS ORDERED: SENNOSIDES 8.6MG TABLET (FP) PO SCH (22:00)
[2020-08-19 22:57] LABS: EPI CELLS 60.2 /uL (0-25.1); HYALINE CASTS 5.65 /uL (0-3.1); URINE BACTERIA 6.6 /uL (0-1359); URINE WBC 240.2 /uL (0-25.8); YEAST NEGATIVE (NEGATIVE)
[2020-08-20] MEDS: INSULIN SLIDING SCALE (NOVOLOG) 1 VIAL SQ SCH ×2 (06:30→11:22)
[2020-08-20] MEDS: INSULIN (LEVEMIR) 100 UNITS/ML UNITS SQ SCH (06:31)
[2020-08-20 09:09] LABS: BASO % 0.4 % (0-2.0); EOS % 3.9 % (0-4.5); HEMATOCRIT 31.5 % (35.4-49); LYMPH % 26.3 % (8-40); MCH 29.8 pg (25.7-33.7); MCHC 34.8 g/dl (32.0-35.9); MEAN CELL VOLUME 85.7 fl (80-96); MEAN PLT VOLUME 8.6 fl (7.5-11.1); MONO % 8.1 % (3.8-10.2); NEUT % 61.3 % (42.8-82.8); PLATELET COUNT 236 K/MM3 (134-434); RBC 3.68 M/mm3 (4.00-5.60); RDW 12.6 % (11.9-15.9)
[2020-08-20] MEDS ORDERED: DEXTROSE 5%-WATER - 50 ML IVPB ONE (09:12)
[2020-08-20] MEDS ORDERED: cefTRIAXone SODIUM 1 GM VIAL ONE (09:12)
[2020-08-20] MEDS: CEFTRIAXONE 1 GM in DEXTROSE 5%-WATER - 50 ML IVPB SCH (09:15)
[2020-08-20] MEDS: DOCUSATE SODIUM 100 MG CAPSULE (FP) PO SCH (09:15)
[2020-08-20] MEDS: TAMSULOSIN HCL 0.4 MG CAP PO SCH (09:15)
[2020-08-20] MEDS: POLYETHYLENE GLYCOL 3350 119 GM BTL PO SCH (09:15)
[2020-08-20 09:35] LABS: CALCIUM 8.8 mg/dL (8.5-10.1)
[2020-08-20 09:36] LABS: ALBUMIN 3.2 g/dl (3.4-5.0); BLOOD UREA NITROGEN 14.4 mg/dL (7-18)
[2020-08-20 09:39] LABS: CREATININE 0.8 mg/dL (0.55-1.3)
[2020-08-20 09:40] LABS: BILIRUBIN,TOTAL 0.3 mg/dL (0.2-1)
[2020-08-20 09:41] LABS: TOT PROT 6.2 g/dl (6.4-8.2)
[2020-08-20] MEDS ORDERED: TAMSULOSIN HCL 0.4 MG CAP PO SCH (11:00)
[2020-08-20 11:19] VITALS: BP 101/59; PULSE 104; TEMP 98.6
== END 2020-08-20 13:49 | disposition home or self-care (01) | DRG 463 ==
LOC: JER 18:34 → JERBED 21:01 → J6S 08-18 08:58
PROVIDERS: ADMIT Internal Medicine
DX: N39.0 Urinary tract infection, site not specified (principal); R33.9 Retention of urine, unspecified; E66.9 Obesity, unspecified; Z68.28 Body mass index [BMI] 28.0-28.9, adult; E78.5 Hyperlipidemia, unspecified; N40.0 Benign prostatic hyperplasia without lower urinary tract symptoms; R31.0 Gross hematuria
CPT/HCPCS: 36415; 76857; 80048; 80053; 81003; 82962; 83735; 85025; 85027; 86850; 86900; 86901; 93005; 93010; 99285-25; C9803; U0003; U0005

== ENCOUNTER 2020-08-28 15:44 | Inpatient (IN) | payer OTHER ==
[2020-08-28 17:16] LABS: BASO % 0.5 % (0-2.0); EOS % 0.8 % (0-4.5); HEMATOCRIT 29.4 % (35.4-49); LYMPH % 20.9 % (8-40); MCH 29.5 pg (25.7-33.7); MCHC 33.9 g/dl (32.0-35.9); MEAN CELL VOLUME 86.9 fl (80-96); MEAN PLT VOLUME 8.3 fl (7.5-11.1); MONO % 6.3 % (3.8-10.2); NEUT % 71.5 % (42.8-82.8); PLATELET COUNT 347 K/MM3 (134-434); RBC 3.38 M/mm3 (4.00-5.60); RDW 13.8 % (11.9-15.9); WHITE BLOOD COUNT 14.2 K/mm3 (4.0-10.0)
[2020-08-28 17:18] LABS: HEMATOCRIT 29.2 % (35.4-49); HEMOGLOBIN 9.8 GM/dL (11.7-16.9); MCH 29.4 pg (25.7-33.7); MCHC 33.7 g/dl (32.0-35.9); MEAN CELL VOLUME 87.2 fl (80-96); MEAN PLT VOLUME 8.4 fl (7.5-11.1); PLATELET COUNT 343 K/MM3 (134-434); RBC 3.35 M/mm3 (4.00-5.60); RDW 13.2 % (11.9-15.9); WHITE BLOOD COUNT 14.3 K/mm3 (4.0-10.0)
[2020-08-28 17:24] LABS: INR 1.19 (0.83-1.09); PROTHROMBIN TIME (PATIENT) 14.3 SEC (9.7-13.0)
[2020-08-28 17:26] LABS: ACTIVATED PTT 23.3 SECONDS (25.2-36.5)
[2020-08-28 17:45] LABS: ALBUMIN 3.3 g/dl (3.4-5.0); BLOOD UREA NITROGEN 16.5 mg/dL (7-18); CALCIUM 8.2 mg/dL (8.5-10.1)
[2020-08-28 17:49] LABS: CREATININE 0.9 mg/dL (0.55-1.3)
[2020-08-28 17:50] LABS: BILIRUBIN,TOTAL 0.3 mg/dL (0.2-1); TOT PROT 6.1 g/dl (6.4-8.2)
[2020-08-28] MEDS ORDERED: LACTATED RINGERS SOLUTION 1,000 ML/1,000 ML INFUS.BAG IV SCH (18:45)
[2020-08-28] MEDS ORDERED: CEFTRIAXONE 1 GM in DEXTROSE 5%-WATER - 50 ML IVPB SCH (18:45)
[2020-08-29] MEDS ORDERED: CEFTRIAXONE 1 GM/50 ML BAG ONE (02:57)
[2020-08-29 03:45] LABS: BASO % 0.7 % (0-2.0); EOS % 1.1 % (0-4.5); HEMATOCRIT 30.2 % (35.4-49); HEMOGLOBIN 10.3 GM/dL (11.7-16.9); LYMPH % 21.8 % (8-40); MCH 29.8 pg (25.7-33.7); MCHC 34.2 g/dl (32.0-35.9); MEAN CELL VOLUME 87.2 fl (80-96); MEAN PLT VOLUME 8.1 fl (7.5-11.1); MONO % 7.8 % (3.8-10.2); NEUT % 68.6 % (42.8-82.8); PLATELET COUNT 237 K/MM3 (134-434); RBC 3.47 M/mm3 (4.00-5.60); RDW 14.4 % (11.9-15.9); WHITE BLOOD COUNT 9.3 K/mm3 (4.0-10.0)
[2020-08-29 04:07] LABS: CALCIUM 7.7 mg/dL (8.5-10.1)
[2020-08-29 04:08] LABS: ALBUMIN 2.7 g/dl (3.4-5.0); BLOOD UREA NITROGEN 16.6 mg/dL (7-18)
[2020-08-29 04:11] LABS: CREATININE 0.8 mg/dL (0.55-1.3)
[2020-08-29 04:13] LABS: BILIRUBIN,TOTAL 0.4 mg/dL (0.2-1); TOT PROT 5.5 g/dl (6.4-8.2)
[2020-08-29 10:21] LABS: BASO % 0.5 % (0-2.0); HEMOGLOBIN 11.1 GM/dL (11.7-16.9); LYMPH % 26.8 % (8-40); MCH 29.9 pg (25.7-33.7); MCHC 34.7 g/dl (32.0-35.9); MEAN CELL VOLUME 86.2 fl (80-96); MONO % 7.2 % (3.8-10.2); NEUT % 64.5 % (42.8-82.8); PLATELET COUNT 279 K/MM3 (134-434); RBC 3.71 M/mm3 (4.00-5.60); RDW 14.1 % (11.9-15.9); WHITE BLOOD COUNT 9.4 K/mm3 (4.0-10.0)
[2020-08-29 10:48] LABS: CALCIUM 8.6 mg/dL (8.5-10.1)
[2020-08-29 10:49] LABS: BLOOD UREA NITROGEN 13.7 mg/dL (7-18)
[2020-08-29 10:52] LABS: CREATININE 0.8 mg/dL (0.55-1.3)
[2020-08-29 10:53] LABS: BILIRUBIN,TOTAL 0.4 mg/dL (0.2-1)
[2020-08-29 10:54] LABS: TOT PROT 6.3 g/dl (6.4-8.2)
[2020-08-29 10:57] LABS: ALBUMIN 3.4 g/dl (3.4-5.0)
[2020-08-29] MEDS ORDERED: ACETAMINOPHEN 325 MG TABLET (FP) PO PRN ×5 (11:38→14:36)
[2020-08-29] MEDS ORDERED: TAMSULOSIN HCL 0.4 MG CAP PO ONE ×3 (11:38→14:36)
[2020-08-29] MEDS ORDERED: EPHEDRINE SULFATE/0.9% NACL/PF 50 MG/10 ML SYRINGE NR ONE (11:41)
[2020-08-29] MEDS ORDERED: SUCCINYLCHOLINE CHLORIDE 200 MG/10 ML SYRINGE ONE (11:41)
[2020-08-29] MEDS ORDERED: MIDAZOLAM HCL 2 MG/2 ML SINGLE DOSE VIAL ONE (11:42)
[2020-08-29] MEDS ORDERED: PROPOFOL 20 ML ONE ×2 (11:42)
[2020-08-29] MEDS ORDERED: ceFAZolin SODIUM 1 GM VIAL IVPB ONE (11:51)
[2020-08-29] MEDS ORDERED: ACETAMINOPHEN INJECTION 100 ML IVPB ONE (12:15)
[2020-08-29] MEDS ORDERED: oxyCODONE HCL 5 MG TABLET PO PRN ×3 (12:35→14:36)
[2020-08-29] MEDS ORDERED: ONDANSETRON 4 MG/2 ML VIAL IVPUSH PRN ×3 (12:51→14:36)
[2020-08-29] MEDS: ACETAMINOPHEN 325 MG TABLET (FP) PO PRN (20:11)
[2020-08-30 01:06] VITALS: BMI 37.5
[2020-08-30] MEDS: ACETAMINOPHEN 325 MG TABLET (FP) PO PRN (05:39)
[2020-08-30 08:01] LABS: HEMATOCRIT 27.6 % (35.4-49); HEMOGLOBIN 9.8 GM/dL (11.7-16.9); MCH 30.5 pg (25.7-33.7); MCHC 35.4 g/dl (32.0-35.9); MEAN PLT VOLUME 8.3 fl (7.5-11.1); PLATELET COUNT 221 K/MM3 (134-434); RBC 3.21 M/mm3 (4.00-5.60); RDW 14.6 % (11.9-15.9); WHITE BLOOD COUNT 10.1 K/mm3 (4.0-10.0)
[2020-08-30 08:44] LABS: BLOOD UREA NITROGEN 10.3 mg/dL (7-18); CALCIUM 8.1 mg/dL (8.5-10.1)
[2020-08-30 08:47] LABS: CREATININE 0.8 mg/dL (0.55-1.3)
[2020-08-30] MEDS: TAMSULOSIN HCL 0.4 MG CAP PO SCH (09:20)
[2020-08-30] MEDS: POLYETHYLENE GLYCOL 3350 119 GM BTL PO SCH (12:54)
[2020-08-30 16:01] LABS: HEMATOCRIT 29.7 % (35.4-49); HEMOGLOBIN 10.2 GM/dL (11.7-16.9); MCH 30.1 pg (25.7-33.7); MCHC 34.2 g/dl (32.0-35.9); MEAN CELL VOLUME 87.9 fl (80-96); MEAN PLT VOLUME 8.5 fl (7.5-11.1); PLATELET COUNT 224 K/MM3 (134-434); RBC 3.38 M/mm3 (4.00-5.60); RDW 14.7 % (11.9-15.9); WHITE BLOOD COUNT 9.7 K/mm3 (4.0-10.0)
[2020-08-30] MEDS: CEPHALEXIN MONOHYDRATE 500 MG CAPSULE (UD) PO SCH ×2 (17:24→23:12)
[2020-08-31] MEDS: CEPHALEXIN MONOHYDRATE 500 MG CAPSULE (UD) PO SCH ×2 (05:01→12:01)
[2020-08-31 07:26] LABS: HEMOGLOBIN 10.1 GM/dL (11.7-16.9); MCH 30.9 pg (25.7-33.7); MCHC 34.9 g/dl (32.0-35.9); MEAN CELL VOLUME 88.5 fl (80-96); MEAN PLT VOLUME 8.3 fl (7.5-11.1); PLATELET COUNT 200 K/MM3 (134-434); RBC 3.28 M/mm3 (4.00-5.60); RDW 14.7 % (11.9-15.9); WHITE BLOOD COUNT 7.7 K/mm3 (4.0-10.0)
[2020-08-31] MEDS: POLYETHYLENE GLYCOL 3350 119 GM BTL PO SCH (09:53)
[2020-08-31] MEDS: TAMSULOSIN HCL 0.4 MG CAP PO SCH (09:53)
[2020-08-31 14:04] VITALS: BP 137/67; PULSE 108; TEMP 98.9
== END 2020-08-31 14:54 | disposition home or self-care (01) | DRG 952 ==
LOC: JER 15:44 → JERBED 17:04 → J7W 08-29 17:59
PROVIDERS: ATTEND Internal Medicine
PROC: 30233N1 Transfusion of Nonautologous Red Blood Cells into Peripheral Vein, Percutaneous Approach (ICD-10-PCS; 2020-08-28)
PROC: 0T9B80Z Drainage of Bladder with Drainage Device, Via Natural or Artificial Opening Endoscopic (ICD-10-PCS; 2020-08-29)
PROC: 0V508ZZ Destruction of Prostate, Via Natural or Artificial Opening Endoscopic (ICD-10-PCS; principal; 2020-08-29 13:45)
DX: N99.820 Postprocedural hemorrhage of a genitourinary system organ or structure following a genitourinary system procedure (principal); Y83.9 Surgical procedure, unspecified as the cause of abnormal reaction of the patient, or of later complication, without mention of misadventure at the time of the procedure; N30.01 Acute cystitis with hematuria; R55 Syncope and collapse; I95.9 Hypotension, unspecified; D62 Acute posthemorrhagic anemia; N40.0 Benign prostatic hyperplasia without lower urinary tract symptoms; D64.9 Anemia, unspecified; I10 Essential (primary) hypertension; E78.5 Hyperlipidemia, unspecified; E11.9 Type 2 diabetes mellitus without complications; E66.9 Obesity, unspecified; Z68.37 Body mass index [BMI] 37.0-37.9, adult; R57.1 Hypovolemic shock; R00.0 Tachycardia, unspecified
CPT/HCPCS: 36415; 36430; 36511; 80048; 80053; 82550; 82962; 84484; 85025; 85027; 85384; 85610; 85730; 86922; 88302-TC; 93005; 93010; 94760; 97116-GP; 97161-GP; 99291; C9803; J0131; P9016; P9058; U0003; U0005

== ENCOUNTER 2020-12-04 04:25 | Day surgery (SDC) | payer OTHER ==
[2020-11-30 16:20] VITALS: BMI 36.3
[2020-12-04] MEDS ORDERED: PROPOFOL 20 ML ONE ×2 (11:47→12:10)
[2020-12-04] MEDS ORDERED: KETOROLAC TROMETHAMINE 30 MG/1 ML VIAL ONE (11:47)
[2020-12-04] MEDS ORDERED: LIDOCAINE HCL/PF 2% SDV 5ML VIAL ONE (11:47)
[2020-12-04 12:50] VITALS: TEMP 98.3
[2020-12-04 13:46] VITALS: BP 130/58; PULSE 79
== END 2020-12-04 13:45 | disposition home or self-care (01) ==
LOC: JASU-SURG 04:25
PROVIDERS: ATTEND Urology
PROC: 0TF3XZZ Fragmentation in Right Kidney Pelvis, External Approach (ICD-10-PCS; principal; 2020-12-04 10:30)
DX: N20.0 Calculus of kidney (principal)

== ENCOUNTER 2023-02-10 05:11 | Day surgery (SDC) | payer OTHER ==
[2023-02-06 13:54] VITALS: BMI 36.3
[2023-02-10 10:43] VITALS: RESP 18
[2023-02-10] MEDS ORDERED: MIDAZOLAM HCL 2 MG/2 ML SINGLE DOSE VIAL ONE (13:25)
[2023-02-10] MEDS ORDERED: FENTANYL CITRATE/PF 50 MCG/ML VIAL ONE (13:26)
[2023-02-10] MEDS ORDERED: ONDANSETRON 4 MG/2 ML VIAL ONE (13:47)
[2023-02-10 15:16] VITALS: BP 135/78; PULSE 73; TEMP 97.8
== END 2023-02-10 15:37 | disposition home or self-care (01) ==
LOC: JASU-SURG 05:11
PROVIDERS: ATTEND Urology
PROC: 0TF4XZZ Fragmentation in Left Kidney Pelvis, External Approach (ICD-10-PCS; principal; 2023-02-10 12:30)
DX: N20.0 Calculus of kidney (principal)

== ENCOUNTER 2023-04-17 07:16 | Day surgery (SDC) | payer OTHER ==
[2023-04-10 15:59] VITALS: BMI 36.1
[2023-04-17] MEDS ORDERED: PROPOFOL 60 ML ONE (07:23)
[2023-04-17 08:48] VITALS: PULSE 67; TEMP 98
[2023-04-17 09:20] VITALS: BP 110/65; RESP 18
== END 2023-04-17 09:50 | disposition home or self-care (01) ==
LOC: FASU-ENDO 07:16
PROVIDERS: ATTEND Internal Medicine Gastroenterology
PROC: 0DBL8ZX Excision of Transverse Colon, Via Natural or Artificial Opening Endoscopic, Diagnostic (ICD-10-PCS; 2023-04-17)
PROC: 0DBK8ZX Excision of Ascending Colon, Via Natural or Artificial Opening Endoscopic, Diagnostic (ICD-10-PCS; principal; 2023-04-17 08:13)
DX: Z12.11 Encounter for screening for malignant neoplasm of colon (principal); D12.2 Benign neoplasm of ascending colon; D12.3 Benign neoplasm of transverse colon
CPT/HCPCS: 88305-TC

== ENCOUNTER 2023-11-03 04:46 | Day surgery (SDC) | payer OTHER ==
[2023-10-27 12:42] VITALS: BMI 35.5
[2023-11-03 10:54] VITALS: BP 138/65; PULSE 61; RESP 20; TEMP 97.8
== END 2023-11-03 12:30 | disposition home or self-care (01) ==
LOC: JASU-SURG 04:46
PROVIDERS: ATTEND Urology
DX: Z53.8 Procedure and treatment not carried out for other reasons (principal)
CPT/HCPCS: 82962

== ENCOUNTER 2023-12-30 04:30 | Day surgery (SDC) | payer OTHER ==
[2023-12-26 13:53] VITALS: BMI 36.3
[2023-12-30] MEDS ORDERED: MIDAZOLAM HCL 2 MG/2 ML SINGLE DOSE VIAL ONE (11:38)
[2023-12-30] MEDS ORDERED: ONDANSETRON 4 MG/2 ML VIAL ONE (11:42)
[2023-12-30 12:14] VITALS: RESP 20
[2023-12-30 14:07] VITALS: BP 114/70; PULSE 80; TEMP 97.1
== END 2023-12-30 14:00 | disposition home or self-care (01) ==
LOC: JASU-SURG 04:30
PROVIDERS: ATTEND Urology
PROC: 0TF4XZZ Fragmentation in Left Kidney Pelvis, External Approach (ICD-10-PCS; principal; 2023-12-30 11:44)
DX: N20.0 Calculus of kidney (principal)
CPT/HCPCS: 82962